=== PATIENT | male | born 1955 | race Caucasian/White ===

== ENCOUNTER → 2017-10-03 | Outpatient (CLI) | payer BC ==
[~2017-10-03] MED LIST: ASCORBIC ACID500 M3 PO; ATORVASTATIN CA20 MG PO; ZINC50 M1 PO
== END | disposition home or self-care (01) ==
LOC: CDC 08:43
DX: Z01.810 Encounter for preprocedural cardiovascular examination (principal); K40.90 Unilateral inguinal hernia, without obstruction or gangrene, not specified as recurrent
CPT/HCPCS: 93000

== ENCOUNTER 2017-10-08 10:07 | Day surgery (SDC) | payer BC ==
[~2017-10-08] VITALS: Ht 170.2 cm; Wt 70.2 kg
[2017-10-08 10:35] VITALS: BP 134/84
[2017-10-08] MEDS ORDERED: NORCO 5/3251 TABLET PO (13:31)
[2017-10-08 15:10] VITALS: BP 131/70
[2017-10-08 16:10] VITALS: BP 120/74
[2017-10-08 18:00] VITALS: BP 126/75
[2017-10-08 20:01] VITALS: BP 137/74
[2017-10-08 20:28] VITALS: BP 137/74
== END 2017-10-08 20:36 | disposition home or self-care (01) ==
LOC: SDC
DX: K40.90 Unilateral inguinal hernia, without obstruction or gangrene, not specified as recurrent (principal); D17.6 Benign lipomatous neoplasm of spermatic cord; E78.5 Hyperlipidemia, unspecified; Z87.891 Personal history of nicotine dependence
CPT/HCPCS: C1781; J0131; J0690; J1170; J1885; J2250; J2405; J3010; Q0175